=== PATIENT | female | born 1985 | race Two or more races ===

== ENCOUNTER 2017-12-01 23:58 | Emergency (ER) | payer OTHER ==
[~2017-12-01] VITALS: Ht 177.8 cm; Wt 108.0 kg
[2017-12-02 00:04] VITALS: BP 129/81
[2017-12-02] MEDS ORDERED: KETOROLAC 30 MG/1 ML IM ONE (00:30)
[2017-12-02] MEDS ORDERED: HYDROcodone/APAP 5/325 TABLET ONE (00:30)
[2017-12-02] MEDS ORDERED: HYDROcodone/APAP 5/325 TABLET PO PRN (00:30)
[2017-12-02] MEDS ORDERED: KETOROLAC 30 MG/1 ML ONE (00:43)
== END 2017-12-02 01:29 | disposition home or self-care (01) ==
LOC: ED 23:59
DX: M75.32 Calcific tendinitis of left shoulder (principal); M75.52 Bursitis of left shoulder
CPT/HCPCS: 73030; 96372; 99284; J1885

== ENCOUNTER 2018-11-08 01:54 | Emergency (ER) | payer OTHER ==
[~2018-11-08] VITALS: Ht 175.3 cm; Wt 106.0 kg
--- NOTE | 2018-11-08 02:07 | NUR ---
PT PRESENTED AND STATED SHE IS 19 WEEKS . PT DENIED SPOTTING AT THIS TIME, UPPER ABD PAIN, N/V STARTED AT 2100. DENIED URINARY SYMPTOMS. TOOK TYLENOL AT 2330. NO IMPROVEMENT IN PAIN. ERP AT PT'S BEDSIDE FOR EVAL. MONITORS APPLIED, SIDERAILS UP X2, CALL LIGHT WITHIN REACH
[2018-11-08] MEDS ORDERED: ONDANSETRON ODT 4 MG ONE (02:19)
[2018-11-08] MEDS ORDERED: OXYcodone/APAP 5/325MG TABLET ONE (02:21)
[2018-11-08] MEDS ORDERED: OXYcodone IR 5MG TABLET PO ONE (02:30)
[2018-11-08] MEDS ORDERED: ONDANSETRON ODT 8 MG PO ONE (02:30)
--- NOTE | 2018-11-08 02:30 | NUR ---
URINE SAMPLE TAKEN TO LAB
[2018-11-08] MEDS ORDERED: OXYcodone IR 5MG TABLET ONE (02:39)
[2018-11-08 02:40] LABS: CULTURE INDICATED? YES; MICROSCOPIC INDICATED
[2018-11-08 02:57] LABS: BASOPHILS # (AUTO) 0.02 x10^3/uL (0-0.1); BASOPHILS % (AUTO) 0 % (0-1); EOSINOPHILS # (AUTO) 0.05 x10^3/uL (0-0.4); EOSINOPHILS % (AUTO) 1 % (1-7); LYMPHOCYTES # (AUTO) 1.61 x10^3/uL (1-3.4); LYMPHOCYTES % (AUTO) 18 % (22-44); MD NO; MEAN CORPUSCULAR HEMOGLOBIN 26.6 pg (27.0-34.8); MEAN CORPUSCULAR HGB CONC 33.8 g/dL (32.4-35.8); MEAN CORPUSCULAR VOLUME 78.6 fL (80-100); MEAN PLATELET VOLUME 7.7 fL (7.4-10.4); MONOCYTES # (AUTO) 0.47 x10^3/uL (0.2-0.8); MONOCYTES % (AUTO) 5 % (2-9); NEUTROPHILS # (AUTO) 6.81 x10^3/uL (1.8-6.8); NEUTROPHILS % (AUTO) 76 % (42-75); PLATELET COUNT 301 x10^3/uL (130-400); RED BLOOD COUNT 3.82 x10^6/uL (3.82-5.3); RED CELL DISTRIBUTION WIDTH 16.8 % (9.6-15.2)
--- NOTE | 2018-11-08 02:57 | NUR ---
PT TO ULTRASOUND
[2018-11-08 03:10] LABS: ALANINE AMINOTRANSFERASE 25 U/L (12-78); ALBUMIN 2.8 g/dL (3.4-5.0); ANION GAP 5 mmol/L (5-15); CALCIUM 8.9 mg/dL (8.5-10.1); CHLORIDE 106 mmol/L (98-107)
[2018-11-08 03:12] LABS: ALKALINE PHOSPHATASE 119 U/L (45-117); TOTAL PROTEIN 8.2 g/dL (6.4-8.2)
[2018-11-08 03:15] LABS: BILIRUBIN,TOTAL < 0.1 mg/dL (0.2-1.0)
[2018-11-08 04:06] VITALS: BP 107/59
== END 2018-11-08 04:29 | disposition home or self-care (01) ==
LOC: ED 02:57
DX: O23.12 Infections of bladder in pregnancy, second trimester (principal); K80.70 Calculus of gallbladder and bile duct without cholecystitis without obstruction; R31.9 Hematuria, unspecified; Z3A.17 17 weeks gestation of pregnancy; Z87.891 Personal history of nicotine dependence
CPT/HCPCS: 36415; 76700; 80053; 81001; 83690; 85025; 87086; 99284; Q0162